=== PATIENT | male | born 1980 | race Caucasian/White ===

== ENCOUNTER 2025-03-15 13:05 | Inpatient (IN) | payer SELFPAY ==
[2025-03-15] VITALS (13 sets, daily range): BP systolic 143–169; BP diastolic 93–114; BMI 29.3
[2025-03-15 08:55] LABS: % Basophils 0.4 % (0-2); % Eosinophils 0.2 % (0-6); % Immature Granulocytes 0.2 % (0-0.5); % Lymphocytes 17.1 % (20.5-51.1); % Monocytes 6.8 % (1.7-9.3); % Neutrophils 75.3 % (42.2-75.2); Absolute Lymphocytes 1.4 10^3/uL (1.2-3.4); Absolute Monocytes 0.6 10^3/uL (0.1-0.6); Absolute Neutrophils 6.1 10^3/uL (1.4-6.5); Hematocrit 37.1 % (39.0-52.0); Hemoglobin 13.7 g/dL (13.0-18.0); Mean Corp Hgb Conc. 36.9 g/dL (33.0-37.0); Mean Corpuscular Hgb 36.7 pg (27.0-31.0); Mean Corpuscular Volume 99.5 fL (80.0-94.0); Mean Platelet Volume 9.8 fL (7.4-10.4); Nucleated Red Blood Cells % 0 % (-); Platelet Count 195 10^3/uL (130-400); Red Blood Cell Count 3.73 10^6/uL (4.70-6.10); Red Cell Dist. Width 15.9 % (11.5-14.5); White Blood Cell Count 8.1 10^3/uL (4.8-10.8)
[2025-03-15 09:24] LABS: AST (SGOT) 52 U/L (17-59); Albumin 4.4 g/dl (3.5-5.0); Alkaline Phosphatase 94 U/L (38-126); Blood Urea Nitrogen 12 mg/dl (9-20); Calcium 9.6 mg/dl (8.4-10.2); Carbon Dioxide 23 mmol/L (22-30); Chloride 103 mmol/L (98-107); Estimated Creatinine Clearance 89 ml/min; Glucose 151 mg/dl (70-99); Magnesium 1.2 mg/dl (1.6-2.3); Potassium 3.6 mmol/L (3.5-5.1); Sodium 133 mmol/L (135-145); Total Bilirubin 1.4 mg/dl (0.2-1.3); Total Protein 7.5 g/dl (6.3-8.2); eGFR > 60.00
[2025-03-15 09:27] LABS: Lactic Acid 4.9 mmol/L (0.7-2.0)
[2025-03-15] MEDS: ATIVAN 2 MG IV ×5 (09:27→18:15)
--- NOTE | 2025-03-15 09:32 | ED.GENMED ---
History of Present Illness
General
Chief Complaint: Seizure
Source: patient, family and ambulance crew
Exam Limitations: none
Time Seen by Provider: 03/15/25 09:06
Nursing documentation reviewed up to this point in time: agreed with
History of Present Illness
History of Present Illness:
44-year-old male alcoholic's been on a binge for last 4 to 6 weeks apparently came home this morning was tremulous possibly sees bit his tongue fell hit his head EMS called me patient did not want to come in and I did order some Versed which
apparently he did not get, here he is tremulous somewhat dismissive of his symptoms he admits to not drinking for about 2 days he is not interested in rehab mainly complaining of pain in his lip and tongue where he bit did discuss his symptoms with
his and his father separately they confirm that he is an alcoholic try to have an intervention which he was not agreeable to go to rehab
Past History
Social History
Tobacco: Non-smoker
Alcohol: Chronic alcoholic
Drug: None
Personal:
Living: with family
Employment: Not employed
Review of Systems
Review of Systems
All Other Systems: Not applicable
EENT: Reports mouth pain
Phy Exam
Physical Exam
Physical Exam:
Physical Exam
General: Tremulous male
Neck: Tongue bite lip bite with slight
Heart: Tachycardic
Lungs: no acute respiratory distress. clear bilaterally
Abdomen: Not tender
Neuro: alert and oriented. no focal neurological deficits
Skin: no rash
Psychiatric: Tremulous
Extremities: no edema.
Scores
Withdrawal Assessment of Alcohol
Withdrawal Assessment Completed?: Yes
Nausea and Vomiting: Mild nausea with no vomiting
Tactile Disturbances: Mild itching, pins and needles, burning or numbness
Tremor: Moderate, with patient's arms extended
Auditory Disturbances: Very mild harshness or ability to fighten
Paroxysmal Sweats: No sweat visible
Visual Disturbances: Very mild sensitivity
Anxiety: Moderately anxious, or guarded, so anxiety is inferred
Headache, Fullness in Head: Very mild
Agitation: Moderately fidgety and restless
Orientation and clouding of sensorium: Oriented and can do serial additions
Total CIWA Score: 18
Alcohol Withdrawal Medication Recommendation: Equal to MSAS Score 8-11. Lorazepam 1-2mg IV NOW & re-assess q1hr
Course
Orders/Labs/Results
Orders:
Orders
03/15/25 08:42
Electrocardiogram (*1) Urgent
Reason for Study: Bradycardia / Tachycardia
03/15/25 08:43
EKG- Treatment ONCE
03/15/25 08:47
Complete Blood Count/With Diff Urgent
Comprehensive Metabolic Panel Urgent
Lactic Acid Urgent
Magnesium Urgent
03/15/25 09:19
Lorazepam [Ativan] 2 mg IV NOW STA
03/15/25 09:20
CT Cervical Spine W/o Iv Contr Urgent
Comment:
Reason For Exam: fall
CT Head W/o Iv Contrast Urgent
Comment:
Reason For Exam: fall sizure
Cardiac Monitoring- Treatment ONCE
03/15/25 09:48
CR Chest Portable - 1 View Urgent
Comment:
Reason For Exam: dts
Reason Study Needs to be Portable: Patient Unstable
03/15/25 10:29
Lorazepam [Ativan] 2 mg IV NOW STA
03/15/25 10:30
Warm Handoff Consult ONCE
Patient agreeable to Warm Hand off: Yes
Call made to [phone]: Spoke with CRS
03/15/25 11:00
0.9% Sodium Chloride 1000 ml [Nss] 1,000 ml Mvi, Adult [Multivitamin] 10 ml Thiamine Injection 100 mg Magnesium Sulfate 2 grams IV 200 mls/hr
Abnormal Lab Results
03/15/25
08:47
RBC 3.73 L 10^6/uL
(4.70-6.10)
Hct 37.1 L %
(39.0-52.0)
MCV 99.5 H fL
(80.0-94.0)
MCH 36.7 H pg
(27.0-31.0)
RDW 15.9 H %
(11.5-14.5)
Neutrophils % 75.3 H %
(42.2-75.2)
Lymphocytes % 17.1 L %
(20.5-51.1)
Sodium 133 L mmol/L
(135-145)
Glucose 151 H mg/dl
(70-99)
Lactic Acid 4.9 H* mmol/L
(0.7-2.0)
Magnesium 1.2 L mg/dl
(1.6-2.3)
Total Bilirubin 1.4 H mg/dl
(0.2-1.3)
ALT 60 H U/L
(0-50)
03/15/25 08:47
03/15/25 08:47
Vital Signs
Initial and Last Documented VS:
Initial Vital Signs
BP
162/107
03/15/25 08:42
Last Documented Vital Signs
Temp Pulse Resp BP Pulse Ox
99.4 F 106 15 153/96 97
03/15/25 08:43 03/15/25 08:48 03/15/25 08:48 03/15/25 08:48 03/15/25 08:48
MDM/Problems Addressed
Differential Diagnosis Includes:
Alcohol withdrawal, early delirium tremens, alcohol withdrawal seizure, concomitant head trauma, electrolyte abnormality, arrhythmia
MDM/Problems Addressed:
Alcoholism
Chronic conditions affecting care:
Alcohol
Acute Exacerbation and/or Progression of Chronic Illness:
Alcoholism
*Radiology
Radiology exam reviewed: radiology read reviewed
*Pulse Oximetry
Patient hypoxic: no
Comment: 99
*EKG
Interpreted by ED Provider?: Yes
Interpretation: abnormal
Comparison EKG: no comparison EKG present
Heart Rate: 118
Rate: tachycardiac
Rhythm: sinus
Ischemia: non-specific ST changes
*[employer] Interpretation
Rate: tachycardiac
Interpretation: abnormal
Heart Rate: 118
Rhythm: sinus
*Critical Care Note
Total Time (30-74mins, 75-104mins- exclusive of procedures): 31
Data Reviewed
Prescriptions/Medications Considered But Not Given:
Phenobarbital
Further Testing Considered But Not Given:
EEG
Update Note
Update Note:
10:30 AM patient still tremulous, tachycardic does have elevated lactic acid low magnesium suspect this is all alcohol withdrawal seizure with impending DTs electrolyte replacements been ordered thiamine folate magnesium, will repeat doses Ativan
ED Attending Note
-
Portions of this chart may have been created with voice recognition software.� Occasional wrong word or��sound alike� substitutions may have occurred due to the inherent limitations of voice recognition software.
Discharge Plan
Departure
Prescriptions:
No Action
No Current Medications
0
Interventions
Interventions:
*Risk Screen - Suicide Last Done: 03/15/25 08:43
*General Assessment Last Done: 03/15/25 08:43
*Neglect/Abuse Screening Last Done: 03/15/25 08:43
*ED- Fall Risk Assessment Last Done: 03/15/25 08:43
*ED COVID-19 Vaccine History Last Done: 03/15/25 08:43
ED- Cardiac Assessment Last Done: 03/15/25 08:43
ED- Neurological Assessment Last Done: 03/15/25 08:43
ED- Pulmonary Assessment Last Done: 03/15/25 08:43
Discharge Date and Time
Print Language: TAJIK
[2025-03-15 09:33] LABS: ALT (SGPT) 60 U/L (0-50)
[2025-03-15] MEDS: MULTIVITAMIN 1015 ML IV (10:48)
[2025-03-15] MEDS: MULTIVITAMIN 1015 MG IV (10:48)
[2025-03-15] MEDS: MULTIVITAMIN 1015 GRAMS IV (10:48)
--- NOTE | 2025-03-15 12:57 | HPS.HSE ---
Family Physician
-
Family Physician: Odell Moody
Chief Complaint
-
Seizure
History of Present Illness
44-year-old male with history of hypertension, alcohol abuse with dependence came to the hospital after having a witnessed seizure-like episode which was witnessed by family this morning. Per son at bedside, patient has been drinking heavily and
his last drink was 2 days ago. He was very tremulous yesterday and this morning they witnessed seizure-like activity. Patient does have tongue bite. Denies any headache, shortness of breath, abdominal pain, nausea, vomiting, diarrhea,
constipation. Denies any fever/chills. Patient has been to rehab before however currently appears he is not agreeable.
Medical History
Past Medical History
Past Medical History: Reports HTN
Past Surgical History: Reports None
Social History
Tobacco: Non-smoker
Alcohol: Binge drinker
Family History
Family History: Not pertinent
Allergies / Home Medications
Allergies reflects when Allergies were last updated in [facility].
Home Medications with original date entered in [facility]
Allergy/Medication List:
Allergies
Allergy/AdvReac Type Severity Reaction Status Date / Time
No Known Allergies Allergy Unverified 03/15/25 08:42
Home Medications
No Meds [No Current Medications] 03/15/25
Review of Systems
-
History Source: Patient
A 12 point ROS was completed and negative except as noted: Yes
Constitutional: Reports Other (Tremors)
Physical Exam
Vital Signs
Vital Signs
Temp Pulse Resp BP Pulse Ox
99.4 F 107 21 145/107 98
03/15/25 08:43 03/15/25 12:00 03/15/25 12:00 03/15/25 12:00 03/15/25 11:52
Physical Exam
General: Well Nourished and No Apparent Distress
HEENT: Anicteric and Moist mucous membranes
Respiratory: Clear and Non Labored Respirations; No Wheezes
Cardiac: S1/S2, Regular Rhythm and Tachycardia
Breast: Deferred by me
GI: Soft, Non Tender and Non Distended
Rectal: Deferred by Provider
Genito-urinary: Deferred by me
Musculoskeletal: No Edema
Neuro: Awake, Alert, Oriented, AO x 3 and Tremors
Psych: Calm
Laboratory Results
-
03/15/25 08:47
03/15/25 08:47
Laboratory Results
Lactic Acid 4.9 mmol/L (0.7-2.0) H* 03/15/25 08:47
Total Bilirubin 1.4 mg/dl (0.2-1.3) H 03/15/25 08:47
AST 52 U/L (17-59) 03/15/25 08:47
ALT 60 U/L (0-50) H 03/15/25 08:47
Alkaline Phosphatase 94 U/L (38-126) 03/15/25 08:47
Data Reviewed
-
Lab Data: Labs Reviewed by me, Discussed with Patient and Discussed with Family
Impression/Plan
-
Seizure suspect likely secondary to alcohol withdrawal
Start phenobarbital, Ativan as needed per protocol. monitor MSAS, if mental status gets worse then will need Precedex
communications station manager evaluation
Neurology evaluation
CT head without any acute abnormality
Fluids
Monitor electrolytes
Does not appear to be hallucinating however monitor mental status
Hypomagnesemia
Replete
Hyponatremia
Monitor
Lactic acidosis
Trend
History of hypertension
Not on any meds
Hydralazine as needed, if high blood pressure persist then will start p.o. meds
DVT prophy
Lovenox
Full code
I spent a total of 77 minutes with the patient or on the floor. More than 50% of this time involved counseling and coordination of care.
--- NOTE | 2025-03-15 13:15 | CM ---
Addendum entered by Laura Chen RN 03/15/25 13:40:
Eusebio from [facility] updated CM that patient receptive to outpatient therapy. Eusebio provided to the patient via e-mail [facility] information.
Original Note:
Reviewed the chart notes and spoke with the patient and his son at the bedside. The patient resides with his spouse in a one story home with two steps to enter. The patient reports no DME/VN/SNF in the past. The patient confirmed his pharmacy of
choice is [facility]. Received permission from patient to contact [facility] on his behalf. Eusebio with [facility] contacted and provided patient's information. They will reach out to the patient. Patient is interested in outpatient
resources. Patient's correct phone number is [phone]. Admissions contacted and corrected in system. CM continues to be available to patient/family and is monitoring medical plan for needs at discharge.
Plan: Discharge plans will depend on the patient's progress.
--- NOTE | 2025-03-15 14:09 | EDRN ---
this RN called the receiving unit and notified them that paper report was going to be tubed up
--- NOTE | 2025-03-15 15:05 | CON.NEURO ---
Neuro Assessment/Plan
Assessment
seizure as symptom of delirium tremens
history, vital signs and withdrawal symptoms consistent with this
agree phenobarbital, Ativan PRN
no need for MRI, EEG, seizure meds
Consultation
Order
Date of Consultation: 03/15/25
Requesting Provider: Byron Elaine
Reason for Consult: seizure, alcohol withdrawal
Subjective/Objective
Subjective Data
Date of Service: March 15, 2025
from h&p
44-year-old male with history of hypertension, alcohol abuse with dependence came to the hospital after having a witnessed seizure-like episode which was witnessed by family this morning. Per son at bedside, patient has been drinking heavily and
his last drink was 2 days ago. He was very tremulous yesterday and this morning they witnessed seizure-like activity. Patient does have tongue bite. Denies any headache, shortness of breath, abdominal pain, nausea, vomiting, diarrhea,
constipation. Denies any fever/chills. Patient has been to rehab before however currently appears he is not agreeable.
patient reports he hit the right side of his head and he did bite his tongue no prior seizures. A couple head traumas without LOC. never had meningitis, no fhx seizures
Objective Data
Vital Signs
Temp Pulse Resp BP Pulse Ox
37.4 C 107 21 145/107 98
03/15/25 08:43 03/15/25 12:00 03/15/25 12:00 03/15/25 12:00 03/15/25 11:52
Lab Results
03/15/25 08:47
03/15/25 08:47
Sodium 133 mmol/L (135-145) L 03/15/25 08:47
Potassium 3.6 mmol/L (3.5-5.1) 03/15/25 08:47
BUN 12 mg/dl (9-20) 03/15/25 08:47
Glucose 151 mg/dl (70-99) H 03/15/25 08:47
Calcium 9.6 mg/dl (8.4-10.2) 03/15/25 08:47
Phosphorus Cancelled 03/15/25 12:54
Patient Allergies
No Known Allergies Allergy (Unverified 03/15/25 08:42)
Physical Exam
-
AAOx3
mildly tremulous
Medications
-
Active Medications
Generic Name Dose Route Start Last Admin
Trade Name Freq PRN Reason Stop Dose Admin
Folic Acid 1 mg 03/15/25 13:00
Folic Acid 1 Mg Tablet PO 04/12/25 12:59
DAILY MATEO
Hydralazine HCl 5 mg 03/15/25 12:57
Hydralazine 20 Mg/Ml Vial IV 04/12/25 12:56
Q6HPRN PRN
SBP>160
Multivitamins/Minerals 10 ml/ 1,015 mls @ 200 mls/hr 03/15/25 11:00 03/15/25 10:48
Thiamine HCl 100 mg/ Magnesium IV 03/15/25 16:04 1,015 mls
Sulfate 2 grams/ Sodium .Q5H5M ONE Administration
Chloride
Folic Acid 1 mg/ Sodium 50.2 mls @ 200.8 mls/hr 03/15/25 12:54
Chloride IV 04/12/25 12:53
DAILYPRN PRN
if NPO
Phenobarbital Sodium 260 mg/ 104 mls @ 416 mls/hr 03/15/25 12:54
Sodium Chloride IV 03/15/25 13:08
NOW STA
Lorazepam 1 mg 03/15/25 12:54
Lorazepam 1 Mg Tablet PO 04/12/25 12:53
Q2HPRN PRN
MSAS 5-7
Lorazepam 1 mg 03/15/25 12:54
Lorazepam 2 Mg/Ml Vial IV 04/12/25 12:53
Q1HPRN PRN
MSAS 8-11
Lorazepam 2 mg 03/15/25 12:54 03/15/25 13:46
Lorazepam 2 Mg/Ml Vial IV 04/12/25 12:53 2 mg
Q1HPRN PRN Administration
MSAS > 11
Phenobarbital Sodium 64.8 mg 03/17/25 22:00
Phenobarbital 32.4 Mg Tablet PO 03/19/25 16:01
TID MATEO
Phenobarbital Sodium 32.4 mg 03/19/25 22:00
Phenobarbital 32.4 Mg Tablet PO 03/21/25 16:01
TID MATEO
Phenobarbital Sodium 97.5 mg 03/15/25 22:00
Phenobarbital (65 Mg/Ml) 1 Ml Vial IV 03/17/25 16:01
TID MATEO
Sodium Chloride 0 ml 03/15/25 12:54
Sodium Chloride 0.9% (Preservative Free) 10 Ml Vial IV 04/12/25 12:53
PRN PRN
To dilute IV Ativan
Protocol
Thiamine HCl 200 mg 03/15/25 16:00
Thiamine (100 Mg/Ml) 2 Ml Vial IV 03/18/25 08:01
Q8 MATEO
Thiamine HCl 100 mg 03/18/25 20:00
Thiamine 100 Mg Tablet PO 04/15/25 19:59
BID MATEO
Home Medications
�Medication �Instructions �Recorded
No Meds [No Current Medications] 03/15/25
[2025-03-15] MEDS: FOLVITE 1 MG PO (16:05)
[2025-03-15] MEDS: LR 1000 IV ×2 (16:08→22:58)
[2025-03-15] MEDS: THIAMINE INJECTION 200 MG IV (16:24)
[2025-03-15] MEDS: PHENOBARBITAL 104 MG IV (16:25)
[2025-03-15 16:30] LABS: INR 1.15
[2025-03-15 16:31] LABS: APTT 26.9 Sec (23.4-35.0)
[2025-03-15 16:32] LABS: Lactic Acid 0.9 mmol/L (0.7-2.0)
[2025-03-15] MEDS: LOVENOX 40 MG SC (17:12)
[2025-03-15] MEDS: LOPRESSOR 5 MG IV (18:25)
--- NOTE | 2025-03-15 18:26 | PTCARENOTE ---
B/P request by nurse document 143/94(110) map HR 149
[2025-03-15] MEDS: PHENOBARBITAL 97.5 MG IV (22:08)
[2025-03-16] VITALS (7 sets, daily range): BP systolic 137–161; BP diastolic 92–111; BMI 29.3
[2025-03-16] MEDS: THIAMINE INJECTION 200 MG IV ×3 (00:01→15:41)
[2025-03-16] MEDS: LR 1000 IV ×4 (05:44→21:12)
[2025-03-16 06:23] LABS: % Basophils 0.2 % (0-2); % Eosinophils 0.4 % (0-6); % Immature Granulocytes 0.3 % (0-0.5); % Lymphocytes 17.9 % (20.5-51.1); % Monocytes 6.6 % (1.7-9.3); % Neutrophils 74.6 % (42.2-75.2); Absolute Lymphocytes 1.6 10^3/uL (1.2-3.4); Absolute Monocytes 0.6 10^3/uL (0.1-0.6); Absolute Neutrophils 6.6 10^3/uL (1.4-6.5); Hematocrit 30.5 % (39.0-52.0); Hemoglobin 11.3 g/dL (13.0-18.0); Mean Corpuscular Hgb 37.4 pg (27.0-31.0); Mean Platelet Volume 10.7 fL (7.4-10.4); Nucleated Red Blood Cells % 0 % (-); Platelet Count 131 10^3/uL (130-400); Red Blood Cell Count 3.02 10^6/uL (4.70-6.10); Red Cell Dist. Width 15.5 % (11.5-14.5); White Blood Cell Count 8.9 10^3/uL (4.8-10.8)
[2025-03-16 06:39] LABS: ALT (SGPT) 42 U/L (0-50); AST (SGOT) 39 U/L (17-59); Albumin 3.5 g/dl (3.5-5.0); Alkaline Phosphatase 69 U/L (38-126); Blood Urea Nitrogen 10 mg/dl (9-20); Calcium 8.7 mg/dl (8.4-10.2); Carbon Dioxide 25 mmol/L (22-30); Chloride 105 mmol/L (98-107); Estimated Creatinine Clearance 107 ml/min; Glucose 83 mg/dl (70-99); Potassium 3.4 mmol/L (3.5-5.1); Sodium 135 mmol/L (135-145); Total Bilirubin 1.7 mg/dl (0.2-1.3); Total Protein 6.1 g/dl (6.3-8.2); eGFR > 60.00
[2025-03-16] MEDS: PHENOBARBITAL 97.5 MG IV ×3 (08:26→22:24)
[2025-03-16] MEDS: FOLVITE 1 MG PO (08:26)
[2025-03-16] MEDS: POTASSIUM PHOSPHATE 259.0909 MEQ IV (09:18)
[2025-03-16] MEDS: MAGNESIUM SULFATE 100 IV (09:19)
[2025-03-16] MEDS: LOPRESSOR 5 MG IV (10:26)
--- NOTE | 2025-03-16 11:17 | W.PN.HOSP.TC ---
Today's Communication/Plan
-
Monitor vital signs see plan
Severe withdrawal, continue with phenobarbital, Ativan
If symptoms to get worse then will need ICU monitoring with Precedex
Replete electrolytes aggressively
Continue with fluids
Assessment / Plan
Assessment / Plan
General: Well Nourished and No Apparent Distress
HEENT: Anicteric and Moist mucous membranes
Respiratory: Clear and Non Labored Respirations; No Wheezes
Cardiac: S1/S2, Regular Rhythm and Tachycardia
GI: Soft, Non Tender and Non Distended
Musculoskeletal: No Edema
Neuro: Awake, Alert, Oriented, AO x 3 and Tremors
Psych: Calm
Seizure suspect likely secondary to alcohol withdrawal
Started phenobarbital, Ativan as needed per protocol. monitor MSAS, if mental status gets worse then will need Precedex
city manager evaluation
Neurology following
CT head without any acute abnormality
Fluids
Monitor electrolytes
Does not appear to be hallucinating however monitor mental status
Hypomagnesemia
Replete
Hypokalemia
Replete
Hypophosphatemia
replete
Hyponatremia
Monitor
Lactic acidosis
resolved
Sinus tachycardia
Likely secondary to withdrawal, continue to monitor
Denies any chest pain
History of hypertension
Not on any meds; blood pressure remains high then will need maintenance medication
Lopressor as needed
DVT prophy
Lovenox
Full code
I spent a total of 52 minutes with the patient or on the floor. More than 50% of this time involved counseling and coordination of care.
Anticipated Discharge: > 48 hours
Subjective/Interval History
-
Date of Service: March 16, 2025
denies pain
Objective Data
-
Labs:
Laboratory Results
03/16/25
05:22
WBC 8.9
Hgb 11.3 L
Hct 30.5 L
Plt Count 131 D
Sodium 135
Potassium 3.4 L
Chloride 105
Carbon Dioxide 25
BUN 10
Creatinine 1.0
Glucose 83
Calcium 8.7
Total Bilirubin 1.7 H
AST 39
ALT 42
Alkaline Phosphatase 69
Vital Signs:
Vital Signs
Temp Pulse Resp BP Pulse Ox
98.9 F 136 18 151/95 98
03/16/25 07:28 03/16/25 10:26 03/16/25 07:28 03/16/25 07:28 03/16/25 07:28
[2025-03-16] MEDS: LOVENOX 40 MG SC (17:38)
[2025-03-17] VITALS (8 sets, daily range): BP systolic 139–172; BP diastolic 74–111
[2025-03-17] MEDS: THIAMINE INJECTION 200 MG IV ×3 (00:08→15:31)
[2025-03-17 06:59] LABS: % Basophils 0.3 % (0-2); % Eosinophils 0.6 % (0-6); % Immature Granulocytes 0.6 % (0-0.5); % Lymphocytes 15.8 % (20.5-51.1); % Monocytes 6.5 % (1.7-9.3); % Neutrophils 76.2 % (42.2-75.2); Absolute Eosinophils 0.1 10^3/uL (0-0.7); Absolute Immature Granulocytes 0.1 10^3/uL (0-0.05); Absolute Lymphocytes 1.4 10^3/uL (1.2-3.4); Absolute Monocytes 0.6 10^3/uL (0.1-0.6); Absolute Neutrophils 6.9 10^3/uL (1.4-6.5); Hematocrit 29.9 % (39.0-52.0); Hemoglobin 10.8 g/dL (13.0-18.0); Mean Corp Hgb Conc. 36.1 g/dL (33.0-37.0); Mean Corpuscular Hgb 36.6 pg (27.0-31.0); Mean Corpuscular Volume 101.4 fL (80.0-94.0); Mean Platelet Volume 11.4 fL (7.4-10.4); Nucleated Red Blood Cells % 0 % (-); Platelet Count 119 10^3/uL (130-400); Red Blood Cell Count 2.95 10^6/uL (4.70-6.10); Red Cell Dist. Width 15.6 % (11.5-14.5)
[2025-03-17 07:22] LABS: ALT (SGPT) 35 U/L (0-50); AST (SGOT) 33 U/L (17-59); Albumin 3.3 g/dl (3.5-5.0); Alkaline Phosphatase 67 U/L (38-126); Blood Urea Nitrogen 8 mg/dl (9-20); Calcium 8.4 mg/dl (8.4-10.2); Carbon Dioxide 24 mmol/L (22-30); Chloride 104 mmol/L (98-107); Estimated Creatinine Clearance 107 ml/min; Glucose 85 mg/dl (70-99); Magnesium 1.7 mg/dl (1.6-2.3); Phosphorus 3.4 mg/dl (2.5-4.5); Potassium 3.4 mmol/L (3.5-5.1); Sodium 134 mmol/L (135-145); eGFR > 60.00
[2025-03-17] MEDS: LR 1000 IV (07:23)
[2025-03-17] MEDS: PHENOBARBITAL 97.5 MG IV ×2 (07:58→15:31)
[2025-03-17] MEDS: FOLVITE 1 MG PO (07:59)
[2025-03-17] MEDS: KCL 270 MEQ IV (09:25)
--- NOTE | 2025-03-17 13:54 | W.PN.HOSP.TC ---
Today's Communication/Plan
-
Continue thiamine, folate
Assessment / Plan
Assessment / Plan
Impression
44-year-old male with history of hypertension and alcohol abuse presented with alcohol withdrawal seizures
#Alcohol withdrawal seizures
MSAS- 1
Continue phenobarbital
Last drink was on
CT head without any acute abnormality
Continue IV fluids
Monitor electrolytes
monitor mental status
Continue thiamine, folate
Patient is okay to get outpatient rehabilitation services
# anemia
Megaloblastic, chronic alcohol use, vitamin deficiency.
Will monitor for now
#Thrombocytopenia
Platelets at 119, will monitor
#Hypomagnesemia
Repleted
#Hypokalemia
Repleted
#Hyponatremia
Monitor
#Lactic acidosis
resolved
#Sinus tachycardia
Likely secondary to withdrawal, continue to monitor
Denies any chest pain
#History of hypertension
Not on any home meds
Lopressor as needed
DVT prophy-Lovenox
Full code
Anticipated Discharge: 24 - 48 hours
Subjective/Interval History
-
Date of Service: March 17, 2025
Patient feels good, reports having good sleep
Objective Data
-
Labs:
Laboratory Results
03/17/25
05:52
WBC 9.0
Hgb 10.8 L
Hct 29.9 L
Plt Count 119 L
Sodium 134 L
Potassium 3.4 L
Chloride 104
Carbon Dioxide 24
BUN 8 L
Creatinine 1.0
Glucose 85
Calcium 8.4
Total Bilirubin 1.0
AST 33
ALT 35
Alkaline Phosphatase 67
Vital Signs:
Vital Signs
Temp Pulse Resp BP Pulse Ox
99.2 F 99 18 148/107 98
03/17/25 11:26 03/17/25 11:26 03/17/25 11:26 03/17/25 11:26 03/17/25 11:26
I&O
03/16/25 03/17/25 03/18/25
06:59 06:59 06:59
Intake Total 900 / 900
Balance 900 / 900
Physical Exam
-
General: Well Developed, Well Nourished and No Apparent Distress
HEENT: Normocephalic and Atraumatic
Respiratory: Clear to Auscultation
Cardiac: S1/S2 and Tachycardic
GI: Soft, Nontender, Nondistended and Normal Bowel Sounds
Skin: Warm and Dry
Neuro: Awake, Alert, Oriented, AO x 3, Nonfocal/Grossly Intact, No Sensory Deficits and Other (Bilateral hand tremors)
Psych: Calm
--- NOTE | 2025-03-17 14:02 | CM ---
CM following re: discharge planning.
Reviewed pt's chart, met with pt.
Per chart review, pt is treating with severe withdrawal, continue with phenobarbital, Ativan, continue supportive care.
[facility] following.
D/C plan: home with outpatient D&A program and family support. [facility] following.
CM will follow with discharge plan updates as hospitalization progresses
[2025-03-17] MEDS: LOVENOX 40 MG SC (17:13)
[2025-03-17] MEDS: LOPRESSOR 5 MG IV (18:29)
[2025-03-17] MEDS: LUMINAL 64.8 MG PO (21:54)
[2025-03-17] MEDS: TYLENOL 650 MG PO (22:20)
[2025-03-18] MEDS: THIAMINE INJECTION 200 MG IV ×2 (00:32→08:08)
[2025-03-18 00:48] LABS: Urine Albumin Negative (Neg - Trace); Urine Bilirubin Negative (Negative); Urine Character Clear (Clear); Urine Color Yellow; Urine Glucose Negative (Negative); Urine Ketone Negative (Negative); Urine Leukocyte Negative (Negative); Urine Nitrite Negative (Negative); Urine Occult Blood Negative (Negative); Urine Specific Gravity 1.005 (<1.030); Urine Urobilinogen Negative (Neg - 1+)
[2025-03-18 03:35] VITALS: BP 158/101
[2025-03-18 04:32] VITALS: BP 146/93
[2025-03-18 07:20] VITALS: BP 157/102
[2025-03-18 07:31] LABS: Hematocrit 31.3 % (39.0-52.0); Hemoglobin 11.5 g/dL (13.0-18.0); Mean Corp Hgb Conc. 36.7 g/dL (33.0-37.0); Mean Corpuscular Hgb 37.3 pg (27.0-31.0); Mean Corpuscular Volume 101.6 fL (80.0-94.0); Mean Platelet Volume 11.3 fL (7.4-10.4); Platelet Count 132 10^3/uL (130-400); Red Blood Cell Count 3.08 10^6/uL (4.70-6.10); Red Cell Dist. Width 15.7 % (11.5-14.5); White Blood Cell Count 9.6 10^3/uL (4.8-10.8)
[2025-03-18 07:47] LABS: ALT (SGPT) 33 U/L (0-50); AST (SGOT) 29 U/L (17-59); Albumin 3.8 g/dl (3.5-5.0); Alkaline Phosphatase 69 U/L (38-126); Blood Urea Nitrogen 9 mg/dl (9-20); Calcium 9.1 mg/dl (8.4-10.2); Carbon Dioxide 24 mmol/L (22-30); Chloride 105 mmol/L (98-107); Estimated Creatinine Clearance 107 ml/min; Glucose 83 mg/dl (70-99); Potassium 4.2 mmol/L (3.5-5.1); Sodium 135 mmol/L (135-145); Total Bilirubin 1.4 mg/dl (0.2-1.3); Total Protein 6.7 g/dl (6.3-8.2); eGFR > 60.00
[2025-03-18] MEDS: LUMINAL 64.8 MG PO ×2 (08:07→15:17)
[2025-03-18] MEDS: FOLVITE 1 MG PO (08:08)
--- NOTE | 2025-03-18 08:50 | W.PN.HOSP.TC ---
Today's Communication/Plan
-
Discharge today
Continue phenobarbital taper, oral phenobarbital
Assessment / Plan
Assessment / Plan
Impression
44-year-old male with history of hypertension and alcohol abuse presented with alcohol withdrawal seizures
#Alcohol withdrawal seizures
MSAS- 3
Continue phenobarbital taper-oral phenobarbital today
Last drink was on
CT head without any acute abnormality
Monitor electrolytes
monitor mental status
Continue thiamine, folate
Patient is okay to get outpatient rehabilitation services- [facility]
# anemia
Megaloblastic, chronic alcohol use, vitamin deficiency.
Will monitor for now
#Thrombocytopenia
monitor
#Hypomagnesemia
Repleted
#Hypokalemia
Repleted
#Hyponatremia
Monitor
#Lactic acidosis
resolved
#Sinus tachycardia
Likely secondary to withdrawal, continue to monitor
Denies any chest pain
#History of hypertension
Not on any home meds
Lopressor as needed
DVT prophy-Lovenox
Full code
Anticipated Discharge: Today
Subjective/Interval History
-
Date of Service: March 18, 2025
Patient reports feeling well.
Objective Data
-
Labs:
Laboratory Results
03/18/25
06:42
WBC 9.6
Hgb 11.5 L
Hct 31.3 L
Plt Count 132
Sodium 135
Potassium 4.2
Chloride 105
Carbon Dioxide 24
BUN 9
Creatinine 1.0
Glucose 83
Calcium 9.1
Total Bilirubin 1.4 H
AST 29
ALT 33
Alkaline Phosphatase 69
Vital Signs:
Vital Signs
Temp Pulse Resp BP Pulse Ox
99.3 F 95 18 157/102 99
03/18/25 07:20 03/18/25 07:20 03/18/25 07:20 03/18/25 07:20 03/18/25 07:20
I&O
03/17/25 03/18/25 03/19/25
06:59 06:59 06:59
Intake Total 900 / 900 840 / 840
Balance 900 / 900 840 / 840
Physical Exam
-
General: Well Developed and Well Nourished
HEENT: Normocephalic and Atraumatic
Respiratory: Clear to Auscultation
Cardiac: Regular Rhythm and S1/S2
GI: Soft, Nontender, Nondistended and Normal Bowel Sounds
Skin: Warm and Dry
Neuro: Awake, Alert, Oriented, AO x 3 and Tremors
Psych: Calm
[2025-03-18 11:05] VITALS: BP 150/103
[2025-03-18 11:48] LABS: Folate 4.7 ng/ml (2.76-20); Vitamin B12 235 pg/ml (239-931)
--- NOTE | 2025-03-18 13:41 | CM ---
CM following re: discharge planning.
Reviewed pt's chart, met with pt.
According to pt is medically stable to be discharged today and pt stated his sister is coming to transport him home.
Pt reports he lives with spouse who works at night and now she is sleeping. Pt reports he has 2 sons 17 and 18 year of age. Pt stated he has been drinking heavily for the past 20 years and this current episode with withdrawal made him weak up call
to stop drinking and pt stated he is going to do. pt stated he will start outpatient D&A treatment program at [facility] tomorrow at 11:30 a.m. Pt stated his deepest stigma is to see his sons and his to explain his
alcohol addiction. Emotional support with reassurance offered and provided. Useful approaches how to manage it with his family offered and provided with behavioral modification techniques. CM had a long conversation/counseling and pt expressed his
great appreciation and stated 'i promise I am going to stay sober'.
D/C plan: home with outpatient D&A treatment program at [place] [facility]. Sister to transport.
[2025-03-18 15:10] VITALS: BP 169/104
--- NOTE | 2025-03-18 17:03 | PTCARENOTE ---
MD aware of BPs running high, ok with DC.
== END 2025-03-18 17:04 | disposition home or self-care (01) | DRG 897 ==
LOC: 2 NORTH 13:05
PROVIDERS: Nurse Practitioner Gerontology; Student in an Organized Health Care Education/Training Program; ADMITTING PHYSICIAN Internal Medicine; ATTENDING PHYSICIAN Internal Medicine; CONSULT PHYSICIAN Psychiatry & Neurology Clinical Neurophysiology; EMERGENCY PHYSICIAN Emergency Medicine; FAMILY PHYSICIAN Family Medicine
DX: F10.239 Alcohol dependence with withdrawal, unspecified (principal); E87.1 Hypo-osmolality and hyponatremia; E87.20 Acidosis, unspecified; I10 Essential (primary) hypertension; R56.9 Unspecified convulsions; D64.9 Anemia, unspecified; E83.42 Hypomagnesemia; D69.6 Thrombocytopenia, unspecified; E87.6 Hypokalemia
CPT/HCPCS: 70450; 71045; 72125; 80053; 81003; 82607; 82746; 83605; 83735; 84100; 85025; 85027; 85610; 85730; 93005; 96365; 96366; 96367; 96375; 96376; 97162; 99291